=== PATIENT | male | born 1960 | race Caucasian/White ===

== ENCOUNTER 2016-10-21 11:39 | Emergency (ER) | payer OTHER ==
[~2016-10-21] VITALS: Ht 175.3 cm; Wt 89.4 kg
[2016-10-21] MEDS ORDERED: FLEXERIL10 MG PO (13:48)
[2016-10-21] MEDS ORDERED: NAPROXEN500 MG PO (13:48)
[2016-10-21 14:09] VITALS: BP 161/93
== END 2016-10-21 14:09 | disposition home or self-care (01) ==
LOC: EME 11:39
DX: S16.1XXA Strain of muscle, fascia and tendon at neck level, initial encounter (principal); R51 Headache; V43.01XA Car driver injured in collision with sport utility vehicle in nontraffic accident, initial encounter
CPT/HCPCS: 70450; 72125; 99281; 99283; J1885